=== PATIENT | female | born 1980 | race American Indian/Alaskan Native ===

== ENCOUNTER → 2024-02-29 | Outpatient (CLI) | payer OTHER, SELFPAY ==
--- NOTE | 2024-02-29 08:45 | XR_ITS ---
Examination: Diagnostic digital mammography, unilateral, right Computer aided detection 3-D breast Tomosynthesis, unilateral Date and time of exam: February 29, 2024 0854 hours INDICATIONS: Mammogram June 11, 2023, mammogram March 19, 2023 20 mm focal asymmetry upper outer right breast 6 mm focal asymmetry inner right breast Technique: Nonmagnified MLO, CC views of the right breast have been obtained, reconstructed from 3-D Tomosynthesis images. R2 computer aided detection program utilized for evaluation of suspicious masses and/or abnormal calcifications. 3-D Tomosynthesis images obtained. Findings: The breast is heterogeneously dense, which may obscure small masses Stable focal asymmetry outer right breast CC view dating to January 25, 2018 Impression: BI-RADS category 0: Incomplete: Need additional imaging evaluation Recommend right breast sonography follow-up
== END | disposition home or self-care (01) ==
LOC: CDIM 08:17
PROVIDERS: PCP Physician Assistant; Referring Provider Physician Assistant; Visit Provider Physician Assistant
DX: R92.8 Other abnormal and inconclusive findings on diagnostic imaging of breast (principal)
CPT/HCPCS: 77061; 77065; G0279

== ENCOUNTER → 2024-03-21 | Outpatient (CLI) | payer OTHER, SELFPAY ==
--- NOTE | 2024-03-21 10:12 | XR_ITS ---
Examination: Breast ultrasound, unilateral, right complete Date and time of exam: March 21, 2024 10:20 AM INDICATIONS: Mammogram February 29, 2024 focal asymmetry outer right breast CC view, family history breast cancer Technique: Real-time ty scale ultrasonographic imaging performed right breast including all 4 quadrants as well as nipple retroareolar and axillary region. Findings: No cystic or solid mass IMPRESSION: BI-RADS Category 1: Negative study
== END | disposition home or self-care (01) ==
PROVIDERS: PCP Physician Assistant; Referring Provider Physician Assistant; Visit Provider Physician Assistant
DX: R92.8 Other abnormal and inconclusive findings on diagnostic imaging of breast (principal); Z80.3 Family history of malignant neoplasm of breast
CPT/HCPCS: 76641

== ENCOUNTER → 2024-04-14 | Outpatient (CLI) | payer OTHER, SELFPAY ==
--- NOTE | 2024-04-14 08:30 | XR_ITS ---
Examination: CT maxillofacial, without intravenous contrast. 2-D sagittal reconstructions. 3-D reconstructions. Date and time of exam:April 14, 2024 0947 hours INDICATIONS: Palpable mass swelling and lump in the right cheek noticed beginning 2 months ago CTDI: vol (mGy):19.8 DLP: (mGycm):398 Technique: Multiple axial images of maxillofacial region, 3.0 mm slice thickness. 2-D sagittal and coronal reconstructions. 3-D reconstructions. Low dose protocols were performed. One or more of the following dose reduction techniques were used; automated exposure control, adjustment of the mA and/or KV according to patient size, use of iterative reconstruction technique. Findings: The optic globes exhibit symmetry Maxillary antra are clear Symmetrical nasopharynx oropharynx Parotid glands exhibit symmetry No pathologic carotid triangle or submental lymphadenopathy The larynx appears normal No prevertebral soft tissue prominence Normal epiglottis IMPRESSION: Recommend ultrasound soft tissue of any palpable facial mass.
== END | disposition home or self-care (01) ==
LOC: CCTX 08:49
PROVIDERS: PCP Physician Assistant; Referring Provider Physician Assistant; Visit Provider Physician Assistant
DX: R22.0 Localized swelling, mass and lump, head (principal)
CPT/HCPCS: 70486

== ENCOUNTER → 2024-07-07 | Outpatient (CLI) | payer OTHER, SELFPAY ==
--- NOTE | 2024-07-07 15:59 | XR_ITS ---
Examination: Bilateral hands, 6 views. Technique: AP, Oblique, Lateral each hand total 6 views Date and time of exam: July 07, 2024 1606 hours INDICATIONS: Bilateral hand pain months FINDINGS: Mild osteopenia No fracture or dislocation involving either hand Bilateral mild nonspecific narrowing joints of the wrists and hands No erosive arthritis No cortical bone destruction Impression: Bilateral mild nonspecific narrowing joints of the wrists and hands No erosive arthritis
== END | disposition home or self-care (01) ==
PROVIDERS: PCP Physician Assistant; Referring Provider Physician Assistant; Visit Provider Physician Assistant
DX: M25.842 Other specified joint disorders, left hand (principal); M25.841 Other specified joint disorders, right hand
CPT/HCPCS: 73130

== ENCOUNTER → 2024-11-18 | Outpatient (CLI) | payer OTHER, SELFPAY ==
--- NOTE | 2024-11-18 16:14 | XR_ITS ---
Examination: Lumbar spine, 5 views Technique: Lumbar spine AP, lateral, coned lateral lower lumbar spine, bilateral obliques 5 views Exam date and time: November 18, 2024 1636 hrs. Indications: Low back pain beginning 2 days ago lifting injury Comparison: September 15, 2022 Findings: Satisfactory alignment lumbar vertebral bodies Advanced disc narrowing L4-L5 No lumbar fracture No spondylolisthesis Impression: Advanced degenerative disc disease L4-L5, progressed compared to the September 15, 2022 exam
--- NOTE | 2024-11-18 16:14 | XR_ITS ---
Examination: Foot, right, 3 views Technique: AP, oblique, lateral views foot, 3 views Date and time of exam: November 18, 2024 1700 hrs. Indications: Right foot pain beginning 2 days ago, work injury. Findings: Mild osteopenia. Mild narrowing first metatarsophalangeal joint No acute fracture No dislocation Impression: No acute fracture
== END | disposition home or self-care (01) ==
PROVIDERS: PCP Physician Assistant; Referring Provider Physician Assistant; Visit Provider Physician Assistant
DX: S93.504A Unspecified sprain of right lesser toe(s), initial encounter (principal); S39.012A Strain of muscle, fascia and tendon of lower back, initial encounter; X58.XXXA Exposure to other specified factors, initial encounter; M51.360 Other intervertebral disc degeneration, lumbar region with discogenic back pain only
CPT/HCPCS: 72110; 73630